=== PATIENT | female | born 1990 | race African-American/Black ===

== ENCOUNTER 2018-01-05 16:09 | Emergency (ER) | payer OTHER ==
[~2018-01-05] VITALS: Ht 165.1 cm; Wt 100.0 kg
[~2018-01-05 16:09] MED LIST: PREN-88 PO
[2018-01-05 16:10] VITALS: BP 107/64
[2018-01-05] MEDS ORDERED: ALPRAZOLAM 0.25 MG TABLET PO ONE (17:15)
== END 2018-01-05 19:17 | disposition home or self-care (01) ==
LOC: ER 16:19
DX: F41.0 Panic disorder [episodic paroxysmal anxiety] (principal); I10 Essential (primary) hypertension
CPT/HCPCS: 99284